=== PATIENT | female | born 1965 | race Two or more races ===

== ENCOUNTER 2024-05-02 08:29 | Day surgery (SDC) | payer OTHER ==
[2024-04-29 09:24] LABS: Urine Bacteria None Seen /hpf (None Seen)
[2024-04-29 09:34] LABS: Urine Blood Negative /uL (Negative); Urine Clarity Clear (Clear); Urine Color Light-Yellow (Yellow); Urine Protein, UAD Negative (Negative); Urine Specific Gravity 1.015 (1.001-1.035); Urine Urobilinogen Normal (Negative); Urine WBC <1 /hpf (0 - 5)
[2024-04-29 09:37] LABS: Basophils # (auto) 0 10 ^3/uL (0-0.2); Basophils % (auto) 0.6 % (0.0-2.0); Eosinophils # (auto) 0.1 10 ^3/uL (0-0.8); Eosinophils % (auto) 2.1 % (0.0-7.0); Hematocrit 45.9 % (36.0-46.0); Lymphocytes % (auto) 40.6 % (10.0-50.0); Mean Corpuscular Hemoglobin 31.6 pg (28.0-32.0); Mean Corpuscular Hgb Conc. 34.9 g/dL (32.0-36.0); Mean Corpuscular Volume 90.5 fL (80.0-100.0); Monocytes # (auto) 0.4 10 ^3/uL (0-1.3); Monocytes % (auto) 8.3 % (0.0-12.0); Neutrophils # (auto) 2.3 10 ^3/uL (1.6-8.6); Neutrophils % (auto) 48.4 % (37.0-80.0); Platelet Count (auto) 284 10^3/uL (140-450); Red Blood Cells 5.07 10^6/uL (4.0-5.20); Red Cell Distribution Width 13.3 % (11.8-14.3); White Blood Cell 4.8 10^3/uL (4.4-10.8)
[2024-04-29 09:44] LABS: INR 1.05 (0.9-1.15); Partial Thromboplastin Time 30.1 SEC (24.5-34.5); Prothrombin Time 11.1 sec (9.3-11.8)
[2024-04-29 09:49] LABS: Alanine Aminotransferase 17 U/L (7-40); Albumin 4.5 g/dL (3.2-4.8); Alkaline Phosphatase 93 U/L (46-116); Anion Gap 5 (5-15); Aspartate Aminotransferase 19 U/L (13-40); BUN/Creatinine Ratio 13.9 (10.0-20.0); Bilirubin, Total 0.5 mg/dL (0.2-1.0); Blood Urea Nitrogen 15 mg/dL (9-23); Calcium 9.9 mg/dL (8.7-10.4); Carbon Dioxide 27 mmol/L (20-31); Chloride 108 mmol/L (98-107); Glucose 108 mg/dL (74-106); Potassium 4.4 mmol/L (3.5-5.1); Sodium 140 mmol/L (136-145)
[~2024-05-02] VITALS: Ht 167.6 cm; Wt 72.6 kg
[~2024-05-02 08:29] MED LIST: PROG200C21 PO
[2024-05-02] MEDS ORDERED: ceFAZolin 2 GM/D5W100ml 100 ML IV ONE (10:27)
[2024-05-02] MEDS ORDERED: DexAMETHasone SOD PHOS 4 MG/1ML SDV INJ ONE (12:39)
[2024-05-02] MEDS ORDERED: LIDOCAINE 1% (LOCAL ANESTH.) PF 5ml SDV ONE (12:41)
[2024-05-02] MEDS ORDERED: EPINEPHrine HCL 1 MG/1 ML AMP ONE (12:48)
[2024-05-02] MEDS ORDERED: fentaNYL CITRATE 100 MCG/2 ML VL ONE (13:32)
[2024-05-02] MEDS ORDERED: MEPERIDINE HCL (50 MG/ML) 1 ML VIAL ONE (13:32)
[2024-05-02] MEDS ORDERED: MIDAZOLAM HCL 2MG/2ML 2ml VIAL (1mg/ml) ONE (13:33)
--- NOTE | 2024-05-02 13:45 | DVHOP2 ---
Operative Report - 2 Report Details Date: 05/02/24 Preop Diagnosis: Left shoulder partial rotator cuff tear, subacromial impingement, proximal biceps tendon tear and chondromalacia Postop Diagnosis: Left shoulder partial rotator cuff tear, subacromial impingement, proximal biceps tendon tear and chondromalacia Surgeon: Demond Suggs MD Correctional Case Manager: Raymond Bergman Physician Correctional Case Manager Anesthesiologist: Dr Jason and Lit Montalvo CRNA Anesthesia: General, Regional Consent: The patient was informed of the risks and benefits of the procedure. These include but are not limited to complications of anesthesia, postoperative infection, incomplete relief of symptoms, recurrence of symptoms, damage to blood vessels, nerves and tendons, deep venous thrombosis, pulmonary embolism and possible need for repeat surgery in the future. Complications: None Estimated Blood Loss: Less than 5 mL Indications for Surgery: The patient is a 58-year-old female who presented to the clinic with a history of shoulder pain. Clinical and radiological evaluation demonstrated partial rotator cuff tear and significant chondromalacia. She also had pain in the proximal humerus, biceps groove. Nonoperative and operative management options were discussed. She had failed thorough nonoperative management and surgery in the form of shoulder arthroscopy, possible rotator cuff repair, subacromial decompression, proximal biceps tenodesis, chondroplasty and microfracture was discussed with her. She decided to proceed with the surgical option. Name of Procedure Performed Left shoulder arthroscopy, rotator cuff repair, proximal biceps tenodesis, subacromial decompression, chondroplasty and microfracture Procedure Details Procedure Details: The patient was identified in the preoperative holding area and the surgical site was marked. The consent was verified. The patient was brought into the operating room and placed supine on the operating table. General anesthesia was administered. The beachchair attachment was applied to the operating table. The patient was now brought up into the beachchair position, approximately 60 degrees. The arm was prepped and draped in the usual sterile manner. The arm was placed in the attachment for the spyder, mechanical arm edgar. The extremity was examined under anesthesia and was found to have good passive range of motion. A timeout was performed to confirm the identity of the patient, the nature of surgery, the site of surgery, the available of implants and x-rays and allergies to medications A standard posterior portal established. A 30 degree scope was inserted A standard anterior portal was established. A probe was inserted and the findings are as follows: 1. Upper 3rd tear of the subscapularis tendon 2. Type 2 unstable superior labral tear, intact biceps tendon. 3. Circumferential degenerative labral tear 4. Grade II/III. chondromalacia, with near full-thickness cartilage damage to the anterior humeral head 5. Significant synovitis 6. Partial-thickness articular sided tear A upper third subscapularis tear was repair. An anchor was inserted. Next, one suture was used to pass on subscapularis and self locking knot was tied. Excellent fixation was noted. Biceps tenodesis was also performed due to the subluxation and superior labral tear. One pair of sutures was passed through the biceps tendon and around it. Sutures were tied around it for excellent fixation. Tenodesis was completed. Chondroplasty was performed and microf racture was done for the anterior humeral head full-thickness chondromalacia. Irrigation was given and the skin portals were closed with 2-0 nylon Sterile dressing was applied. Local anesthetic was given. Shoulder immobilizer was applied Disposition: Good, the patient was extubated and taken to recovery without any complications. The patient was examined in the recovery and had intact neurovascular exam Plan: To remain in the brace. Follow-up in 1 week. Of note is that the arthroscopy pictures were not taken due to device malfunction. The scope had to be inserted again into the joint to take pictures of the joint and the rotator cuff repair. Condition Good Disposition Home DEMOND SUGGS MD May 02, 2024 13:45
[2024-05-02] MEDS ORDERED: HYDROmorphone HCL 2 MG/ML VL/or syr IV PRN (14:00)
[2024-05-02] MEDS ORDERED: hydrALAZINE HCL 20 MG/ML VL IV PRN (14:00)
[2024-05-02] MEDS ORDERED: ONDANSETRON HCL 4 MG/2 ML VIAL IV ONE (14:00)
[2024-05-02] MEDS ORDERED: ePHEDrine SULFATE 50 MG/ML AMP IV PRN (14:00)
[2024-05-02] MEDS ORDERED: MIDAZOLAM HCL 2MG/2ML 2ml VIAL (1mg/ml) IV PRN (14:00)
[2024-05-02] MEDS ORDERED: MORPHINE SULFATE 4 MG/ML SYR/VIAL IV PRN (14:00)
[2024-05-02] MEDS ORDERED: KETOROLAC TROMETH 30 MG/ML 1ML VIAL IV ONE (14:00)
[2024-05-02] MEDS: BUPIVACAINE W/ EPINEPH 0.5% INJ 50ML MDV IJ ONE (14:47)
[2024-05-02] MEDS ORDERED: DexAMETHasone SOD PHOS 10MG/1ML VIAL INJ ONE (14:54)
[2024-05-02] MEDS ORDERED: PROPOFOL 10 MG/ML 20 ML IV ONE (14:54)
[2024-05-02] MEDS ORDERED: SUGAMMADEX 200mg/2ml Vial (100MG/ML) IV ONE (14:55)
[2024-05-02 15:05] VITALS: PULSE 89; RESP 16; TEMP 97.5; O2SAT 93
[2024-05-02 15:50] VITALS: BP 141/65; PULSE 86; RESP 13; O2SAT 94
== END 2024-05-02 16:25 | disposition home or self-care (01) ==
LOC: SUR 08:29
PROVIDERS: ATTEND Orthopaedic Surgery Sports Medicine
DX: M75.112 Incomplete rotator cuff tear or rupture of left shoulder, not specified as traumatic (principal); S43.432A Superior glenoid labrum lesion of left shoulder, initial encounter; M25.812 Other specified joint disorders, left shoulder; M94.212 Chondromalacia, left shoulder; M19.012 Primary osteoarthritis, left shoulder; M65.812 Other synovitis and tenosynovitis, left shoulder; Z98.890 Other specified postprocedural states; X58.XXXA Exposure to other specified factors, initial encounter; Y93.89 Activity, other specified; Y92.89 Other specified places as the place of occurrence of the external cause; Y99.8 Other external cause status
CPT/HCPCS: 29827; 29828; 36415; 80053; 81001; 85025; 85610; 85730; C1713; J0171; J1100; J2175; J2250; J2704; J3010; A4565